=== PATIENT | male | born 1970 | race Caucasian/White ===

== ENCOUNTER 2017-02-02 12:42 | Emergency (ER) | payer BC, OTHER ==
--- NOTE | 2017-02-02 13:54 | UC ---
Throat Pain/Nasal Neil HPI - HPI Summary HPI Summary: 46 year old male presents with complains of sinus congestion and sore throat. - History of Current Complaint Stated Complaint: ST/RESP/COUGH Time Seen by Provider: 02/02/17 13:54 Hx Obtained From: Patient Onset/Duration: Lasting Days Severity: Moderate Pain Scale Used: 0-10 Numeric - 7 - Allergies/Home Medications Allergies/Adverse Reactions: Allergies Allergy/AdvReac Type Severity Reaction Status Date / Time No Known Allergies Allergy Verified 02/02/17 14:23 Home Medications: Home Medications Ibuprofen TAB* [Motrin TAB* 400 MG] 400 mg PO Q6H PRN 02/02/17 [History Confirmed 02/02/17] PMH/Surg Hx/FS Hx/Imm Hx Previously Healthy: Yes Review of Systems Constitutional: Negative Skin: Negative Eyes: Negative ENT: Sore Throat, Nasal Discharge, Sinus Congestion, Sinus Pain/Tenderness Respiratory: Negative Cardiovascular: Negative Gastrointestinal: Negative Genitourinary: Negative Motor: Negative Neurovascular: Negative Musculoskeletal: Negative, Other: Neurological: Negative Psychological: Negative All Other Systems Reviewed And Are Negative: Yes Physical Exam Triage Information Reviewed: Yes Vital Signs Reviewed: Yes Eye Exam: Normal ENT: Positive: Nasal congestion, Nasal drainage, Sinus tenderness Dental Exam: Normal Neck exam: Normal Neck: Positive: 1 Respiratory Exam: Normal Cardiovascular Exam: Normal Abdominal Exam: Normal Musculoskeletal Exam: Normal Neurological Exam: Normal Psychological Exam: Normal Skin Exam: Normal Throat Pain/Nasal Course/Dx - Differential Dx/Diagnosis Provider Diagnoses: sinus congestion. pharyngitis Discharge - Discharge Plan Condition: Stable Disposition: HOME Prescriptions: Amoxicillin/Clavulanate TAB* [Augmentin TAB 875*] 875 mg PO BID #20 tab Guaifenesin-Codeine [Cheratussin AC] 1 syp PO Q8H PRN #120 ml MDD 15 ml PRN Reason: Cough LoraTADine TAB(NF) [Claritin 10 MG TAB(NF)] 10 mg PO DAILY #30 tab Magic M W2 El/Maal/Nyst/Lido* 5 ml SWISH SPIT QID PRN #120 ml PRN Reason: Pain Patient Education Materials: Sinusitis (ED) Referrals: ISHA Franco [Primary Care Provider] -
== END 2017-02-02 14:46 | disposition home or self-care (01) ==
LOC: UCCORT 12:42
DX: J34.89 Other specified disorders of nose and nasal sinuses (principal); J02.9 Acute pharyngitis, unspecified
CPT/HCPCS: 99202; G0463